=== PATIENT | female | born 2000 | race Two or more races ===

== ENCOUNTER 2020-05-21 13:57 | Emergency (ER) | payer SELFPAY ==
[~2020-05-21] VITALS: Ht 170.2 cm; Wt 105.0 kg
[2020-05-21] MEDS ORDERED: HYDROcodone/APAP 5/325MG 1 TAB TABLET PO ONE (14:45)
[2020-05-21] MEDS ORDERED: LIDOCAINE 1% Multi-Dose 20 ML VIAL. INJ ONE (14:45)
[2020-05-21] MEDS ORDERED: SULF1TAB24 PO (14:53)
--- NOTE | 2020-05-21 14:53 | PHYS DOC ---
General Adult EDM: Chief Complaint: ABSCESS HPI: HPI: Patient is a 20 year old female who presents with 4 days ago she had a left lower cheek round area that she thought was a pimple and now it has grown into a quarter sized area. She states is starting to turn red, it is very painful. She denies any past medical history but states she is prediabetic. She is never had any kind of surgery. States has been taking Advil for pain. She rates her pain an sore tender nonradiating 8 out of 10. Review of Systems: Review of Systems: Constitutional: Denies fever or chills. [] Eyes: Denies change in visual acuity. [] HENT: Denies nasal congestion or sore throat. [] Respiratory: Denies cough or shortness of breath. [] Cardiovascular: Denies chest pain or edema. [] GI: Denies abdominal pain, nausea, vomiting, bloody stools or diarrhea. [] : Denies dysuria. [] Musculoskeletal: Denies back pain or joint pain. [] Integument: Denies rash. Left cheek abscess [] Neurologic: Denies headache, focal weakness or sensory changes. [] Endocrine: Denies polyuria or polydipsia. [] Lymphatic: Denies swollen glands. [] Psychiatric: Denies depression or anxiety. [] Heart Score: Risk Factors: Risk Factors: DM, Current or recent (<one month) smoker, HTN, HLP, family history of CAD, obesity. Risk Scores: Score 0 - 3: 2.5% MACE over next 6 weeks - Discharge Home Score 4 - 6: 20.3% MACE over next 6 weeks - Admit for Clinical Observation Score 7 - 10: 72.7% MACE over next 6 weeks - Early Invasive Strategies Physical Exam: PE: Constitutional: Well developed, well nourished, no acute distress, non-toxic appearance. [] HENT: Normocephalic, atraumatic, bilateral external ears normal, oropharynx moist, no oral exudates, nose normal. [] Eyes: PERRLA, EOMI, conjunctiva normal, no discharge. [] Neck: Normal range of motion, no tenderness, supple, no stridor. [] Cardiovascular:Heart rate regular rhythm, no murmur [] Lungs & Thorax: Bilateral breath sounds clear to auscultation [] Abdomen: Bowel sounds normal, soft, no tenderness, no masses, no pulsatile masses. [] Skin: Warm, dry, no erythema, no rash. Left cheek abscess with some pinkness to the skin and tenderness [] Back: No tenderness, no CVA tenderness. [] Extremities: No tenderness, no cyanosis, no clubbing, ROM intact, no edema. [] Neurologic: Alert and oriented X 3, normal motor function, normal sensory function, no focal deficits noted. [] Psychologic: Affect normal, judgement normal, mood normal. [] EKG: EKG: [] Radiology/Procedures: Radiology/Procedures: [] Course & Med Decision Making: Course & Med Decision Making Pertinent Labs and Imaging studies reviewed. (See chart for details) See HPI. Speaks in full complete sentences. Alert and oriented x4. Skin pink warm and dry. Area is quarter size, soft and tender to palpation. It is pink in color. Patient denies fever, nausea, vomiting, diarrhea, headache, dizziness, abdominal pain, chest pain, shortness of air, cough. I&D Location: Left cheek Anesthesia: 1% lidocaine Scalpel size: used 20g needle Skin: [place] in color Drainage: Moderate amount of purulent white-yellow thick drainage Packing: None Patient tolerated the procedure well with no complications. The area was prepped and draped in usual sterile fashion. Area was cleaned with chloehexidine prior to procedure. Return for signs and symptoms of infection education given. Patient to return in 48 hours for wound recheck. [] Patient is placed on Bactrim. She can follow-up in 48 hours to have the wound rechecked. Carlos Disclaimer: Carlos Disclaimer: This electronic medical record was generated, in whole or in part, using a voice recognition dictation system. Departure Departure Impression: Primary Impression: Abscess Disposition: 01 DC HOME SELF CARE/HOMELESS Condition: STABLE Referrals: NO PCP (PCP) Patient Instructions: Abscess, Abscess, Care After Additional Instructions: Return here in 48 hours for a wound recheck. You can use warm compresses over the area to help with pain. Keep clean and covered. Take antibiotic with food and as prescribed. Take ibuprofen or Advil for your pain. Scripts Sulfamethoxazole/Trimethoprim (BACTRIM DS TABLET) 1 Each Tablet 1 TAB PO BID for 7 Days, #14 TAB 0 Refills Prov: BLAYNE KAN APRN 05/21/20 BLAYNE KAN APRN May 21, 2020 14:53
[2020-05-21 15:00] VITALS: BP 155/85
== END 2020-05-21 15:35 | disposition home or self-care (01) ==
LOC: ER 13:57
DX: L02.01 Cutaneous abscess of face (principal)
CPT/HCPCS: 10060; 99283

== ENCOUNTER 2020-06-04 11:54 | Emergency (ER) | payer SELFPAY ==
[~2020-06-04] VITALS: Ht 170.2 cm; Wt 84.0 kg
[~2020-06-04 11:54] MED LIST: SULF1TAB24 PO
[2020-06-04 13:50] VITALS: BP 113/59
--- NOTE | 2020-06-04 13:57 | PHYS DOC ---
Past Medical History Past Medical History: No Pertinent History Past Surgical History: No Surgical History Smoking Status: Never Smoker Alcohol Use: None General Adult EDM: Chief Complaint: ABSCESS HPI: HPI: Patient is a 20 year old female who presents with on May 21 she was here with a left abscess on the left cheek that was drained and she was given antibiotic. She states he got much better. She states that the last couple of days that she noticed the same area is starting to pop up again. Patient states that it only hurts slightly. Review of Systems: Review of Systems: Constitutional: Denies fever or chills. [] Eyes: Denies change in visual acuity. [] HENT: Denies nasal congestion or sore throat. [] Respiratory: Denies cough or shortness of breath. [] Cardiovascular: Denies chest pain or edema. [] GI: Denies abdominal pain, nausea, vomiting, bloody stools or diarrhea. [] : Denies dysuria. [] Musculoskeletal: Denies back pain or joint pain. [] Integument: Denies rash. +Left facial abscess [] Neurologic: Denies headache, focal weakness or sensory changes. [] Endocrine: Denies polyuria or polydipsia. [] Lymphatic: Denies swollen glands. [] Psychiatric: Denies depression or anxiety. [] Heart Score: Risk Factors: Risk Factors: DM, Current or recent (<one month) smoker, HTN, HLP, family history of CAD, obesity. Risk Scores: Score 0 - 3: 2.5% MACE over next 6 weeks - Discharge Home Score 4 - 6: 20.3% MACE over next 6 weeks - Admit for Clinical Observation Score 7 - 10: 72.7% MACE over next 6 weeks - Early Invasive Strategies Allergies: Allergies: Allergies Coded Allergies Type Severity Reaction Last Updated Verified No Known Drug Allergies 05/21/20 No Physical Exam: PE: Constitutional: Well developed, well nourished, no acute distress, non-toxic appearance. [] HENT: Normocephalic, atraumatic, bilateral external ears normal, oropharynx moist, no oral exudates, nose normal. [] Eyes: PERRLA, EOMI, conjunctiva normal, no discharge. [] Neck: Normal range of motion, no tenderness, supple, no stridor. [] Cardiovascular:Heart rate regular rhythm, no murmur [] Lungs & Thorax: Bilateral breath sounds clear to auscultation [] Abdomen: Bowel sounds normal, soft, no tenderness, no masses, no pulsatile masses. [] Skin: Warm, dry, no erythema, no rash. Left cheek nickel sized abscess without redness or cellulitis. Fluctuant center. [] Back: No tenderness, no CVA tenderness. [] Extremities: No tenderness, no cyanosis, no clubbing, ROM intact, no edema. [] Neurologic: Alert and oriented X 3, normal motor function, normal sensory function, no focal deficits noted. [] Psychologic: Affect normal, judgement normal, mood normal. [] EKG: EKG: [] Radiology/Procedures: Radiology/Procedures: [] Course & Med Decision Making: Course & Med Decision Making Pertinent Labs and Imaging studies reviewed. (See chart for details) See HPI. Alert and oriented x4. Ambulatory steady gait. Speaks in full clear sentences. Afebrile. Patient has a nickel sized left cheek abscess that does have a soft center. No redness or cellulitis. I will go ahead and see if I can drain some fluid out of it. She will be placed on antibiotics again. Patient denies fever, body aches, headache, dizziness, nausea, vomiting, diarrhea, cough, chest pain, shortness of air. Patient is educated that she needs to get a primary care provider so she can be referred to a [employer]er plastic [employer] if needed. I&D Location: Left cheek nickel sized Anesthesia: 1% lidocaine Scalpel size: 20-gauge needle Skin: No redness or tenderness with palpation. Center is fluctuant. Drainage: Scant amount of purulent fluid Packing: None Patient tolerated the procedure well with no complications. The area was prepped and draped in usual sterile fashion. Area was cleaned with chloehexidine prior to procedure. Return for signs and symptoms of infection education given. Patient to return in 48 hours for wound recheck. [] Carlos Disclaimer: Carlos Disclaimer: This electronic medical record was generated, in whole or in part, using a voice recognition dictation system. Departure Departure Impression: Primary Impression: Abscess Disposition: 01 DC HOME SELF CARE/HOMELESS Condition: STABLE Referrals: NO PCP (PCP) Patient Instructions: Abscess, Care After Additional Instructions: Take antibiotic as prescribed. Follow-up with primary care physician if needed. Watch for signs of infection. Can return in 48 hours for a wound recheck. Also use a warm compress over the area. Scripts Sulfamethoxazole/Trimethoprim (BACTRIM DS TABLET) 1 Each Tablet 1 TAB PO BID for 7 Days, #14 TAB 0 Refills Prov: BLAYNE KAN APRN 06/04/20 BLAYNE KAN APRN Jun 04, 2020 13:57
[2020-06-04] MEDS ORDERED: LIDOCAINE 1% Multi-Dose 20 ML VIAL. INJ ONE (14:00)
[2020-06-04] MEDS ORDERED: SULF1TAB24 PO (14:08)
== END 2020-06-04 14:18 | disposition home or self-care (01) ==
LOC: ER 12:01
DX: L02.01 Cutaneous abscess of face (principal)
CPT/HCPCS: 10060; 99283; J3490